=== PATIENT | male | born 1950 | race Caucasian/White ===

== ENCOUNTER 2016-08-16 05:03 | Emergency (ER) | payer MEDICARE, OTHER ==
[2016-08-16 02:06] LABS: BASOPHILS 0.2 %; BASOPHILS ABSOLUTE 0.01 10/3/uL (0.0-0.16); EOSINOPHILS 3.1 %; HEMOGLOBIN 12.4 g/dL (13.6-17.8); IMMATURE GRANULOCYTES 0.2 %; IMMATURE GRANULOCYTES ABSOLUTE 0.01 10/3/uL (0.0-0.11); LYMPHOCYTES 19.6 %; LYMPHOCYTES ABSOLUTE 1.25 10/3/uL (0.67-4.30); MEAN CORPUS HGB CONC 32.2 g/dL (32.0-36.0); MEAN CORPUSCULAR HEMOGLOB 26.2 pg (26.0-34.0); MEAN CORPUSCULAR VOLUME 81.2 fL (80-100); MEAN PLATELET VOLUME 9.6 fL (9.2-13.0); MONOCYTES 8.2 %; MONOCYTES ABSOLUTE 0.52 10/3/uL (0.21-1.20); NEUTROPHILS 68.7 %; NEUTROPHILS ABSOLUTE 4.39 10/3/uL (2.02-8.40); PLATELET COUNT 148 10/3/uL (150-400); RBC DISTRIBUTION WIDTH 14.8 % (12.0-16.0); RED CELL COUNT 4.74 10/6/uL (4.7-6.1); WHITE BLOOD CELLS 6.4 10/3/uL (4.5-10.5)
[2016-08-16 02:08] LABS: ER CBC TAT 0 Hrs 04 MinsNP; HEMATOCRIT 38.5 % (40.0-51.0); MANUAL DIFF NO %
[2016-08-16 02:14] LABS: INTERNATIONAL NORMAL RATI 1.1 UNITS (-); PARTIAL THROMBO TIME 30.3 SEC (22.5-37.2); PROTIME (NOT ORD) 14.2 SEC (12.0-14.5)
[2016-08-16 02:51] LABS: CALCIUM, SERUM 8.6 MG/DL (8.5-10.4); CHLORIDE, SERUM 105 MMOL/L (96-112); CO2 (CARBON DIOXIDE) 25 MMOL/L (24-34); GFR AFRICAN AMERICAN 61 ML/MIN (>=60); GFR NON AFRICAN AMERICAN 52 ML/MIN (>=60); GLUCOSE, SERUM 151 MG/DL (60-99); POTASSIUM, SERUM 4.2 MMOL/L (3.5-5.3); SODIUM, SERUM 141 MMOL/L (135-148); TROPONIN I 0.03 NG/ML (<0.05)
[2016-08-16 02:52] LABS: BUN (BLOOD UREA NITROGEN) 24 MG/DL (6-23); CHEST PAIN PROFILE TAT 0 Hrs 49 Mins
[~2016-08-16 05:03] MED LIST: AMARYL4 PO; AMB10 PO; ANUSOL HC SUPP1 SUPP PR; ASA5GR PO; ASAB PO; ASABAYER PO; AUG875 PO; B12250T PO; BUM1 PO; CADEXOMER IODINE TOP; CIP5 PO; CYMBALTA30 PO; DOXYCYCLINE PO; DSS PO; EFFIENT10 PO; ENDOCET1 TA3 PO; FEOSOL200 MG PO; FESO4 PO; FISH OIL PO; FISH OIL1200 MG PO; FISH-EPA1000 MG PO; FLEX PO; GLUCOPHAGE1000 MG PO; GLUCOV5 PO; HUMALOG SC; IMDUR30 PO; IRON325 MG PO; ISOSORBIDE MONONITRATE PO; KLOR-CON M2020 MEQ PO; LANTUS SC; LOP25 PO; LORT7 PO; LOVAZA1 GM PO; MAGNESIUM 500 MG PO; MICRO-K10 MEQ PO; MIRALAXPKT; MIRALAXPKT PO; MONOKET PO; NEUR600 PO; NITROQUICK0.4 MG SL; NITROSTAT0.4 MG SL; NOR50 PO; PLAVIX PO; PRAV10 PO; PRILO PO; PRILOSEC40 MG PO; PRIN20 PO; PRINZIDE1 TA1 PO; PROMEGA PO; RAPAFLO8 MG PO; STOOL SOFTEN100 MG PO; STOOL SOFTENER PO; TOPXL25 PO; TOPXL50 PO; TYLENOL PM PO; VITAMIN B-121000 MC1 PO; VITC500 PO; WELCHOL 625 MG625 MG OR; WELCHOL 625 MG625 MG PO; ZESTORETIC PO
== END 2016-08-16 07:00 | disposition home or self-care (01) ==
LOC: ER 05:03
PROVIDERS: Emergency Medicine
DX: R07.89 Other chest pain (principal); I25.2 Old myocardial infarction; I11.0 Hypertensive heart disease with heart failure; I50.9 Heart failure, unspecified; K21.9 Gastro-esophageal reflux disease without esophagitis; E11.9 Type 2 diabetes mellitus without complications; D64.9 Anemia, unspecified; Z95.5 Presence of coronary angioplasty implant and graft; Z88.5 Allergy status to narcotic agent; Z79.4 Long term (current) use of insulin; Z79.82 Long term (current) use of aspirin; Z79.899 Other long term (current) drug therapy
CPT/HCPCS: 80048; 83735; 84484; 85025; 85610; 85730; 93005; 99285